=== PATIENT | female | born 1975 | race African-American/Black ===

== ENCOUNTER 2018-12-08 12:38 | Emergency (ER) | payer SELFPAY ==
[~2018-12-08] VITALS: Ht 162.6 cm; Wt 59.0 kg
[2018-12-08] MEDS ORDERED: KETOROLAC 60MG/2ML VIAL IM STA (13:50)
[2018-12-08 14:22] VITALS: BP 119/86
[2018-12-08] MEDS ORDERED: MORPHINE SULFATE 10 MG/ML CPJ IM ONE (15:15)
[2018-12-08] MEDS ORDERED: ONDANSETRON 4MG ODT PO ONE (15:15)
== END 2018-12-08 17:21 | disposition home or self-care (01) ==
LOC: ER 12:38
DX: S42.201A Unspecified fracture of upper end of right humerus, initial encounter for closed fracture (principal); F17.200 Nicotine dependence, unspecified, uncomplicated; Y08.89XA Assault by other specified means, initial encounter; Y93.89 Activity, other specified; Y92.89 Other specified places as the place of occurrence of the external cause; Y99.8 Other external cause status
CPT/HCPCS: 73130; 96372; 99283; J1885; J2270; Q0162